=== PATIENT | female | born 1940 | race African-American/Black ===

== ENCOUNTER 2020-02-09 11:40 | Inpatient (IN) | payer MEDICARE, MEDICAID, SELFPAY ==
[2020-02-09] VITALS (22 sets, daily range): BP systolic 98–114; BP diastolic 32–52; PULSE 97–105; RESP 13–22; TEMP 36.8–37.1; O2SAT 95–100; BMI 28.5
--- NOTE | ~2020-02-09 | CT_ITS ---
EXAMINATION: CT abdomen pelvis w con EXAM DATE: 02/09/2020 13:39 INDICATION: Hematochezia. Abdominal pain. TECHNIQUE: Spiral CT of the abdomen and pelvis was performed following intravenous injection of 100 m L Omnipaque 350. Axial, coronal and sagittal images were reviewed. The dose-length product (DLP) fo r this examination was 1008.26 mGy-cm. The exposure was tailored according to patient size (auto mA exposure control), and iterative reconstruction (ASIR) was used as additional dose reduction techniqu e. There is no prior study for comparison. FINDINGS: There is large and deep sacral soft tissue decubitus ulceration, extending to the sacrum an d coccyx. There is small distal sacral erosion suspected, finding indicated on axial image 154, sagit yen image 94. There is fat stranding in the presacral space. The liver, spleen, adrenal glands and pancreas are unremarkable. There are gallstones within an othe rwise unremarkable gallbladder. No evidence of obstructive biliary disease. Portal and splenic vein s are patent. Kidneys enhance symmetrically. There is no hydronephrosis. The uterus is unremarkab le. The bladder is collapsed with Dash catheter balloon anchor inside. There is no retroperitonea l or pelvic lymphadenopathy. There is moderate to severe scattered arteriosclerotic disease. The appendix is normal. There is small sliding gastroesophageal hiatal hernia. There is expected am ount of colonic stool. No free intraperitoneal gas. There is cardiomegaly. Right basilar subpleur al banding, interlobular septal thickening. The lung bases are unremarkable. IMPRESSION: 1. Deep sacral decubitus, with small distal sacral erosions suspected, osteomyelitis. Presacral fat stranding. No pelvic abscess. 2. Cholelithiasis. 3. Cardiomegaly. Reviewed, dictated and finalized at location B. [employer] PLANNER IMPRESSION: 1. Deep sacral decubitus, with small distal sacral erosions suspected, osteomy elitis. Presacral fat stranding. No pelvic abscess. 2. Cholelithiasis. 3. Cardiomegaly.
--- NOTE | ~2020-02-09 | XR_ITS ---
EXAMINATION: XR chest 1V portable EXAM DATE: 02/09/2020 12:29 INDICATION: dyspnea TECHNIQUE: Portable AP frontal chest x-ray was obtained. There is no prior study for comparison. FINDINGS: There is a right-sided PICC line with tip projecting over the cavoatrial junction. Suspect patchy bilateral ill-defined acute airspace disease, could be edema and/or infection, or chronic les s likely. No confluent consolidation, pneumothorax or pleural effusion suspected. The cardiomediastin al silhouette is prominent but magnified on this AP technique. There are bony degenerative changes. T here is aortic arteriosclerosis. IMPRESSION: Suspect patchy bilateral ill-defined acute airspace disease, clinical correlation. Reviewed, dictated and finalized at location B. TIC ATTACHER COVERSTITCH IMPRESSION: Suspect patchy bilateral ill-defined acute airspace disease, clinic al correlation.
--- NOTE | ~2020-02-09 | CT_ITS ---
EXAMINATION: CTA chest PE protocol EXAM DATE: 02/11/2020 14:25 INDICATION: Dyspnea. TECHNIQUE: Spiral CTA of the chest (pulmonary arteries) was performed with 100 cc Omnipaque 350 intr avenous contrast injection. Images were acquired during the pulmonary arterial phase. Coronal maxi mum intensity projection 3D-reconstructions were created by the technologist on dedicated workstation . Axial, coronal and sagittal reformatted images were reviewed. The dose-length product (DLP) for t his examination was 539.59 mGy-cm. The exposure was tailored according to patient size (auto mA exp osure control), and iterative reconstruction (ASIR) was used as additional dose reduction technique. Correlation is made to abdomen pelvis CT 02/09/2020. FINDINGS: Pulmonary arteries are well opacified and without intraluminal filling defects. There is c ardiomegaly and interlobular septal thickening asymmetric to the right. This is more pronounced than on previous examination, could be some component of chronic interstitial lung disease but with superi mposed mild pulmonary edema. Also, interval development of trace pleural effusions compared to CT fro m 2 days earlier. No confluent consolidation. No thoracic aortic dissection. Tracheobronchial tr ee is patent. There is no mediastinal, hilar or axillary lymphadenopathy. There is no pneumothora x. Heart normal in size. There is moderate coronary arterial calcification, arterial sclerosis. Upper abdomen is unremarkable. There is thoracic spondylosis without osteoblastic or osteolytic les ions identified. IMPRESSION: 1. Development of cardiomegaly and trace pleural effusions. Progression of interlobular septal thick ening which could be mild pulmonary edema superimposed on chronic interstitial lung disease. 2. No pulmonary emboli. Reviewed, dictated and finalized at location B. [facility] IMPRESSION: 1. Development of cardiomegaly and trace pleural effusions. Progression of int erlobular septal thickening which could be mild pulmonary edema superimposed on chronic interstitial lung disease. 2. No pulmonary emboli.
--- NOTE | 2020-02-09 11:40 | ECG_ITS ---
Measurements Intervals [place] Rate: 103 P: 28 DE: 162 QRS: 19 QRSD: 138 T: 17 QT: 466 QTc: 612 Interpretive Statements SINUS TACHYCARDIA RIGHT BUNDLE BRANCH BLOCK INFERIOR INFARCT, AGE INDETERMINATE ABNORMAL ECG Electronically Signed On 02-09-2020 15:13:02 AGING ROOM OPERATOR by Caden Fernandez D.O.
--- NOTE | 2020-02-09 11:56 | ED.GENADULT ---
HPI - General Adult General Chief complaint: Weakness Stated complaint: LETHARGY,GI BLEED Time Seen by Provider: 02/09/20 11:43 Source: RN notes reviewed History of Present Illness HPI narrative: Patient presents emergency department from [facility] via EMS for GI bleed. The patient has been weak over the past 2 days and has been noted to have dark stools that were sent for occult blood at the group home was noted to be positive. The patient is currently complaining of no complaints she denies having fevers or chills abdominal pain nausea vomiting or any other symptoms. The patient is currently in isolation at the group home as her roommate tested positive for Covid however the patient has had a negative Covid swab. Patient is on Eliquis patient is also currently on ertapenem daily at the group home with PICC line right upper extremity for osteomyelitis Related Data Allergies Allergy/AdvReac Type Severity Reaction Status Date / Time salicylic acid Allergy Unknown Verified 02/09/20 14:27 Sulfa (Sulfonamide Allergy Unknown Verified 02/09/20 14:27 Antibiotics) Review of Systems Review of Systems: Narrative: Gen.: Denies fevers or chills ENT: Denies congestion Respiratory: Denies shortness of breath or cough CV: Denies chest pain or palpitations GI: See HPI denies burning, urgency, frequency or hematuria Musculoskeletal: Denies back pain or muscle pain Neuro: Reports weakness Skin: Denies rash Except as documented, all other systems reviewed and negative [facility] Past Medical History Medical History (Updated 02/09/20 @ 16:07 by Tony Rodriguez DO) Diabetes mellitus type 2 in nonobese Pulmonary embolism Social History Social History (Updated 02/09/20 @ 11:57 by Tony Rodriguez DO) Smoking status: Never smoker Exam Narrative: Exam Narrative: APPEARANCE: No acute distress, nontoxic, resting in bed EYES: EOMI HEENT: Normocephalic, atraumatic, OMM RESPIRATORY: No respiratory distress Clear to auscultation bilaterally with no rhonchi wheezing or rales. CARDIOVASCULAR: Regular rate and rhythm without murmurs rubs or gallops. ABDOMINAL: Soft, nontender, nondistended, no rebound or guarding Rectal: No hemorrhoids or fissures, black stool is Hemoccult positive MUSCULOSKELETAl: Moves all extremities. No clubbing, cyanosis or edema. PICC line in right upper extremity with no surrounding erythema NEURO: Awake and alert. Following commands, speech normal, no focal deficits SKIN:: Warm, dry. No rashes lesions or abrasions decubitus ulcer present over PSYCHIATRIC: Normal affect/mood, Course Course Emergency Course: Patient's roommate was positive for Covid the patient had negative Covid swab Friday but she also had a Covid swab yesterday with the results not back yet. Called and discussed with WILI Lemos presentation work-up. Agrees with admission at this time. We will keep patient on her daily ertapenem discussed the patient's positive Covid roommate and group home placement. At this time we will obtain another swab his chest x-ray shows questionable patchy infiltrate in place patient on Covid precautions Discussed with Dr. Patel presentation work-up. Agrees with consult at this time Discussed with patient and family results of workup and diagnosis. Discussed need for admission. Patient and family understand and agree to current treatment plan Vital Signs Vital signs: Vital Signs Temperature 98.8 F 02/09/20 11:45 Pulse Rate 102 H 02/09/20 11:45 Respiratory Rate 19 02/09/20 11:45 Blood Pressure 103/52 L 02/09/20 11:45 Pulse Oximetry 99 02/09/20 11:45 Temperature 98.8 F 02/09/20 11:45 Pulse Rate 102 H 02/09/20 15:19 Respiratory Rate 15 02/09/20 15:19 Blood Pressure 105/50 L 02/09/20 15:19 Pulse Oximetry 99 02/09/20 15:19 Medical Decision Making Vital Signs Vital Signs: Vital Signs Temperature 98.8 F 02/09/20 11:45 Pulse Rate 102 H 02/09/20 11:45 Respiratory Rate
[2020-02-09 12:11] LABS: Basophils Absolute Auto 0.1 K/mm3 (0.0-0.1); Basophils Percent Auto 0.3 % (0.2-1.2); Eosinophils Absolute Auto 0.1 K/mm3 (0-0.3); Eosinophils Percent Auto 0.3 % (0-4.4); Hematocrit 26.7 % (37.0-47.0); Hemoglobin 8.2 g/dL (12.0-15.0); Immature Granulocyte Absolute 0.14 K/mm3 (0.00-0.031); Immature Granulocyte Percent A 0.6 % (0-0.5); Lymphocytes Absolute Auto 2.38 K/mm3 (0.9-3.2); Lymphocytes Percent Auto 10.4 % (18.3-44.2); Mean Corpuscular HGB Conc 30.7 g/dl (32-36); Mean Corpuscular Hemoglobin 26.3 pg (26-34); Mean Corpuscular Volume 85.6 fl (80-100); Mean Platelet Volume 9.4 fl (7.4-10.4); Monocytes Absolute Auto 3.4 K/mm3 (0.1-0.6); Neutrophils Absolute Auto 16.8 K/mm3 (1.3-6.7); Neutrophils Percent Auto 73.4 % (45.5-73.1); Platelet Count Result 366 k/mm3 (150-375); Red Blood Count 3.12 M/mm3 (4.2-5.4); Red Cell Distribution Width 19.9 % (11.5-14.5); White Blood Count 22.9 K/mm3 (4.5-10.0)
[2020-02-09 12:24] LABS: Alanine Aminotransferase 12 U/L (4-35); Albumin Level 2.9 g/dL (3.5-5.1); Alkaline Phosphatase 102 U/L (38-126); Anion Gap 5 mmol/L (8-16); Aspartate Amino Transferase 25 U/L (14-36); Bilirubin,Total 0.3 mg/dL (0.2-1.3); Blood Urea Nitrogen 21 mg/dL (7-17); Calcium 8.3 mg/dL (8.4-10.2); Carbon Dioxide 32 mmol/L (22-30); Chloride 100 mmol/L (98-107); Estimated CRCL calculation 64 ml/min; Estimated Glomerular Filt Rate > 60; Glucose 110 mg/dL (65-105); Sodium 137 mmol/L (137-145)
[2020-02-09] MEDS: SODIUM CHLORIDE 0.9% IV 1,000 ML 999 ML IV CONT (12:25)
[2020-02-09 12:28] LABS: Add Urine Microscopic? YES; Appearance Urine Cloudy (Clear); Bacteria Urine Trace /hpf; Bilirubin Urine Negative (Negative); Color Urine Yellow (Yellow); Glucose Urine UA Negative (Negative); Ketones Urine Negative (Negative); Leukocyte Esterase Ur 3+ LEU/UL (Negative); Mucus Urine Rare /lpf; Nitrate Urine Negative (Negative); Protein Urine 1+ mg/dL (Negative); Specific Grav Ur 1.017 (1.001-1.035); Squamous Epithelial Cell Urine Many /hpf (Few); Transitional Epi Cells Urine Rare /hpf (None Seen); Urobilinogen Urine Negative mg/dL (<2.0); WBC Urine 31-50 /hpf
[2020-02-09 12:40] LABS: Blood Urine Negative (Negative)
[2020-02-09 13:01] LABS: INR 1.3; Prothrombin Time 16.8 Seconds (11.1-14.7)
[2020-02-09 13:02] LABS: Partial Thromboplastin Time 38.1 SECONDS (22.3-36.8)
--- NOTE | 2020-02-09 13:11 | WPDGICN ---
Assessment and Plan Assessment and plan (1) Melena: Code(s): K92.1 - Melena Status: Acute Assessment and Plan: Patient presented with melenic stools. Confirmed be Hemoccult-positive along with a blood loss anemia. Plan is for EGD to assess for upper GI blood loss patient will be maintained on proton pump inhibitor for possible ulcer disease. Will must also consider nose bleed to contribute to this as she was seen at [facility] recently with complaints of a nose bleed. ENT evaluation may be necessary if no upper GI sources identified. Eliquis anticoagulation will be held until it is deemed safe to resume period transfuse to stable hemoglobin and monitor blood count subsequently. (2) Anemia due to blood loss: Code(s): D50.0 - Iron deficiency anemia secondary to blood loss (chronic) Status: Acute (3) Nosebleed: Code(s): R04.0 - Epistaxis Status: Acute (4) Chronic anticoagulation: Code(s): Z79.01 - MCFP (current) use of anticoagulants Status: Acute (5) Pulmonary embolism: Code(s): I26.99 - Other pulmonary embolism without acute cor pulmonale Status: Acute GI Consult Note Consult date/time: 02/09/20 13:11 HPI: Zoila Woo is a 80 year old female Seen in evaluation at the request of the emergency room. Patient currently resident of detention. She has a history dating back to spring when she developed COVID. 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 She was placed on Eliquis anticoagulation. Approximately 1 week ago was admitted to [facility] for a nose bleed. An ENT evaluation apparently ensued. She cautiously was restarted on Eliquis anticoagulation. Today was noted to pass black melenic stools and sent to the emergency room for evaluation. A decline in hemoglobin to 8.2 was identified. Stools were confirmed to be Hemoccult positive. Patient denies any abdominal pain. No recent nose bleeds have been identified. Review of Systems Review of Systems: All systems reviewed & are unremarkable except as noted in HPI and below PMFSH Past Medical History Medical History (Updated 02/09/20 @ 13:14 by Wes Patel MD) Diabetes mellitus type 2 in nonobese Pulmonary embolism Social History Social History (Updated 02/09/20 @ 11:57 by Tony Rodriguez DO) Smoking status: Never smoker Meds Vital Signs Vital Signs - 24 hr 02/09/20 11:45 Temperature 98.8 F Pulse Rate 102 H Respiratory Rate 19 Blood Pressure 103/52 L Pulse Oximetry 99 Exam Narrative: Exam Narrative: Physical exam reveals patient be comfortable at rest. HEENT exam unremarkable. No obvious blood in her nasal canal. Lungs are clear to auscultation and percussion. Heart is without murmur or extra sounds. Abdominal exam bowel sounds are present soft nontender with no organomegaly. Rectal exam is unremarkable. In the emergency room stool was confirmed to be Hemoccult-positive. Results Labs CBC & Chem 7: 02/09/20 12:04 02/09/20 12:04 Labs: Short CBC 02/09/20 Range/Units 12:04 WBC 22.9 H (4.5-10.0) K/mm3 Hgb 8.2 L (12.0-15.0) g/dL Hct 26.7 L (37.0-47.0) % Plt Count 366 (150-375) k/mm3 BMP 02/09/20 12:04 Sodium 137 Potassium 3.0 L Chloride 100 Carbon Dioxide 32 H BUN 21 H Creatinine 0.70 Glucose 110 H Calcium 8.3 L Liver Function 02/09/20 Range/Units 12:04 Total Bilirubin 0.3 (0.2-1.3) mg/dL AST 25 (14-36) U/L ALT 12 (4-35) U/L Alkaline Phosphatase 102 (38-126) U/L Albumin 2.9 L (3.5-5.1) g/dL Urine 02/09/20 Range/Units 12:04 Urine Color Yellow (Yellow) Urine Appearance Cloudy H (Clear) Urine pH 6.0 (5.0-9.0) Ur Specific [place] 1.017 (1.001-1.035) Urine Protein 1+ H (Negative) mg/dL Urine Glucose (UA) Negative (Negative) mg/dL
[2020-02-09 13:43] LABS: Lactic Acid Reflex 1.5 mmol/L (0.7-2.1)
[2020-02-09] MEDS: HYDROcodone/acetaminophen (*CRX) 5-325 MG TABLET 1 TAB PO (15:25)
[2020-02-09 16:46] LABS: Hemoglobin 9.2 g/dL (12.0-15.0)
[2020-02-09 17:39] LABS: Glucose Point of Care 88 (65-105)
--- NOTE | 2020-02-09 18:00 | ADMGEN ---
This patient, Zoila Woo, was admitted to [facility] Surg Room 329-01. Patient/family oriented to hospital policies and general routines including ID bracelet, bed and alarms, visiting hours, pain management, procedures, bathroom and other care routines, personal items, smoking policy, room service/diet, and visiting hours. Information on how to activate the Rapid Response Team has been discussed. Patient/Family are encouraged to report perceived risks to care and to ask questions if they do not understand what they are told or what they should do.
[2020-02-09] MEDS: SODIUM CHLORIDE 0.9% IV 1,000 ML 80 ML IV CONT (20:54)
[2020-02-09] MEDS: PANTOPRAZOLE 40 MG TABLET PO (20:54)
[2020-02-09 21:29] LABS: Glucose Point of Care 91 (65-105)
[2020-02-09 21:56] LABS: Hematocrit 28.9 % (37.0-47.0)
[2020-02-09 22:35] LABS: SARS-CoV-2 RNA PCR Negative
[2020-02-09] MEDS: CENTRAL LINE FLUSH 10 ML IV PUSH (22:44)
[2020-02-10] VITALS (9 sets, daily range): BP systolic 103–125; BP diastolic 41–69; PULSE 96–106; RESP 16–22; TEMP 36.1–37.3; O2SAT 96–100; BMI 28.5
--- NOTE | 2020-02-10 03:55 | PM.IMHP ---
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 She is a poor historian. She had a roommate who was COVID positive, only exposure, however her test was negative. She denies any epistasis , hematemesis hemoptysis, bright red blood per rectum, abdominal pain, chest pain , lightheadedness, dizziness. she has no complaints does not even know she has melena. In the ED: Chest x-ray bilateral airspace disease, CT abdomen pelvis: Deep sacral decubitus small distal sacral erosion, presacral fat stranding. EKG sinus tach with right bundle-branch block. Vital stable, hemoglobin stable 8.2 [address] 9[address] Patel gastroenterology consulted plan for EGD in a.m. if negative patient will need ENT evaluation for epistaxis. Review of Systems Review of Systems: Narrative: Patient denies any symptoms unclear how well she knows her medical conditions, she lives at [facility] staff report melena and progressive weakness. Constitutional: No Fever, No Chills, No Night Sweats, No Fatigue, No Malaise ENT/Mouth: No Hearing Changes, No Ear Pain, No Nasal Congestion, No Sinus Pain, No Hoarseness, No sore throat, No Rhinorrhea, No Swallowing Difficulty Eyes: No Eye Pain, No Redness, No Vision Changes Cardiovascular: No Chest Pain, No Palpitations, No Dyspnea on Exertion, No Orthopnea, No Claudication, No Edema Respiratory: No Cough, No Sputum, No Wheezing, No Shortness of Breath Gastrointestinal: No Nausea, No Vomiting, No Diarrhea, No Constipation, No Abdominal Pain, No Heartburn, No Hematochezia, No Melena Genitourinary: No Dysuria, No Urinary Frequency, No Hematuria, No Urinary Incontinence, No Urgency Musculoskeletal: No Arthralgias, No Myalgias, No Joint Swelling, No Joint Stiffness, No Back Pain Skin: No Skin Lesions, No Pruritis, No Hair Changes Neuro: No Weakness, No Numbness, No Paresthesias, No Loss of Consciousness, No Syncope, No Dizziness, No Headache Psych: No Anxiety/Panic, No Depression, No Insomnia Heme: No Bruising, No Bleeding Lymph: No Adenopathy Endocrine: No Polyuria, No Polydipsia, No Temperature Intolerance PMF Past Medical History Medical History Chronic systolic heart failure Diabetes mellitus type 2 in nonobese Hyperlipidemia Pulmonary embolism Vitamin D deficiency Social History Social History (Updated 02/10/20 @ 04:37 by Devin Earl DO) Smoking status: Unknown if ever smoked Alcohol intake: never Substance use: never Living arrangements: fpc Additional living arrangements comments: [facility] Gender identity (if verbalized by the patient): Female Spiritual care concerns: No Meds Home Medications and Allergies Home Medications Medication Instructions Recorded Confirmed Type 0.9 % sodium chloride (phenol) 10 ml IV BID 02/09/20 02/09/20 History Humalog David KwikPen U-100 9 units SUBCUT TID 02/09/20 02/09/20 History Bashir DAILY 02/09/20 History Lasix 20 mg PO DAILY 02/09/20 02/09/20 History Poly-Iron 150 mg PO BID 02/09/20 02/09/20 History acetaminophen 1,000 mg PO Q8H PRN 02/09/20 02/09/20 History albuterol sulfate [Proventil HFA] 2 puff INHALATION Q8-10H PRN 02/09/20 02/09/20 History apixaban [Eliquis] 5 mg PO DAILY 02/09/20 02/09/20 History atorvastatin 20 mg PO DAILY 02/09/20 02/09/20 History clopidogrel [Plavix] 75 mg PO DAILY 02/09/20 02/09/20 History ergocalciferol (vitamin D2) 1,250 mcg PO DAILY 02/09/20 02/09/20 History ertapenem 1 g IV DAILY 02/09/20 02/09/20 History heparin
[2020-02-10] MEDS: CENTRAL LINE FLUSH 20 ML IV PUSH (05:07)
[2020-02-10] MEDS: CENTRAL LINE FLUSH 10 ML IV PUSH ×3 (05:07→21:32)
[2020-02-10 05:16] LABS: Basophils Absolute Auto 0.1 K/mm3 (0.0-0.1); Basophils Percent Auto 0.3 % (0.2-1.2); Eosinophils Percent Auto 0.2 % (0-4.4); Hematocrit 24.1 % (37.0-47.0); Hemoglobin 7.5 g/dL (12.0-15.0); Immature Granulocyte Percent A 0.5 % (0-0.5); Lymphocytes Absolute Auto 1.48 K/mm3 (0.9-3.2); Lymphocytes Percent Auto 7.7 % (18.3-44.2); Mean Corpuscular HGB Conc 31.1 g/dl (32-36); Mean Corpuscular Hemoglobin 26.6 pg (26-34); Mean Corpuscular Volume 85.5 fl (80-100); Mean Platelet Volume 9.1 fl (7.4-10.4); Monocytes Absolute Auto 2.3 K/mm3 (0.1-0.6); Monocytes Percent Auto 11.8 % (2.6-8.5); Neutrophils Absolute Auto 15.3 K/mm3 (1.3-6.7); Neutrophils Percent Auto 79.5 % (45.5-73.1); Platelet Count Result 371 k/mm3 (150-375); Red Blood Count 2.82 M/mm3 (4.2-5.4); Red Cell Distribution Width 19.8 % (11.5-14.5); White Blood Count 19.2 K/mm3 (4.5-10.0)
--- NOTE | 2020-02-10 08:01 | PC.NURSE ---
Called Hospitalist Ole RASHEED about pt having pain. No PRN meds available.
[2020-02-10 08:29] LABS: Anion Gap 1 mmol/L (8-16); Blood Urea Nitrogen 15 mg/dL (7-17); Calcium 8.1 mg/dL (8.4-10.2); Carbon Dioxide 32 mmol/L (22-30); Chloride 106 mmol/L (98-107); Estimated CRCL calculation 74 ml/min; Estimated Glomerular Filt Rate > 60; Glucose 54 mg/dL (65-105); Potassium 2.9 mmol/L (3.4-5.0); Sodium 139 mmol/L (137-145)
[2020-02-10] MEDS: DEXTROSE 50% 25 GM/50 ML SYRINGE IV PUSH ×2 (08:43→11:27)
[2020-02-10] MEDS: SODIUM CHLORIDE 0.9% IV 1,000 ML 80 ML IV CONT (08:44)
[2020-02-10 09:08] LABS: Glucose Point of Care 96 (65-105)
--- NOTE | 2020-02-10 09:16 | WPDANESEPPF ---
Anes - Initial Pre Proc Eval Procedure: Operation Date: 02/10/20 12:30 Proposed Procedures p Esophagogastroduodenoscopy - Wes Patel MD Date/Time: 02/10/20 09:16 Surgeon: Ole Voss PA-C Pre Op Diagnosis: gi bleed,anemia,leukocystosis,covid rule out Patient Data Age: 80 Gender: F Height: 1.73 m Weight: 85 kg Last Vital Signs Temp 37.3 C 02/10/20 06:00 Pulse 96 02/10/20 06:00 Resp 20 02/10/20 06:00 BP 104/46 L 02/10/20 06:00 Pulse Ox 96 02/10/20 06:00 Allergies Allergy/AdvReac Type Severity Reaction Status Date / Time salicylic acid Allergy Unknown Verified 02/09/20 18:42 Sulfa (Sulfonamide Allergy Unknown Verified 02/09/20 18:42 Antibiotics) Home Medications Medication Instructions Recorded Confirmed Type 0.9 % sodium chloride (phenol) 10 ml IV BID 02/09/20 02/09/20 History Humalog David KwikPen U-100 9 units SUBCUT TID 02/09/20 02/09/20 History Bashir DAILY 02/09/20 History Lasix 20 mg PO DAILY 02/09/20 02/09/20 History Poly-Iron 150 mg PO BID 02/09/20 02/09/20 History acetaminophen 1,000 mg PO Q8H PRN 02/09/20 02/09/20 History albuterol sulfate [Proventil HFA] 2 puff INHALATION Q8-10H PRN 02/09/20 02/09/20 History apixaban [Eliquis] 5 mg PO DAILY 02/09/20 02/09/20 History atorvastatin 20 mg PO DAILY 02/09/20 02/09/20 History clopidogrel [Plavix] 75 mg PO DAILY 02/09/20 02/09/20 History ergocalciferol (vitamin D2) 1,250 mcg PO DAILY 02/09/20 02/09/20 History ertapenem 1 g IV DAILY 02/09/20 02/09/20 History heparin lock flush (porcine) 50 unit IV DAILY 02/09/20 02/09/20 History insulin glargine [Lantus Solostar 25 unit SUBCUT DAILY 02/09/20 02/09/20 History U-100 Insulin] metoprolol tartrate 25 mg PO BID 02/09/20 02/09/20 History miconazole nitrate 1 applic TOPICAL BID 02/09/20 02/09/20 History ramelteon 8 mg PO HS PRN 02/09/20 02/09/20 History Laboratory Tests 02/09/20 02/09/20 02/09/20 12:04 12:04 12:04 WBC 22.9 K/mm3 H K/mm3 (4.5-10.0) RBC 3.12 M/mm3 L M/mm3 (4.2-5.4) Hgb 8.2 g/dL L g/dL (12.0-15.0) Hct 26.7 % L % (37.0-47.0) MCV 85.6 fl fl (80-100) MCH 26.3 pg pg (26-34) MCHC 30.7 g/dl L g/dl (32-36) RDW 19.9 % H % (11.5-14.5) Plt Count 366 k/mm3 k/mm3 (150-375) MPV 9.4 fl fl (7.4-10.4) Immature Gran % (Auto) 0.6 % H % (0-0.5) Neut % (Auto) 73.4 % H % (45.5-73.1) Lymph % (Auto) 10.4 % L % (18.3-44.2) [place] % (Auto) 15.0 % H % (2.6-8.5) Eos % (Auto) 0.3 % % (0-4.4) Baso % (Auto) 0.3 % % (0.2-1.2) Lymph # (Auto) 2.38 K/mm3 K/mm3 (0.9-3.2) [place] # (Auto) 3.4 K/mm3 H K/mm3 (0.1-0.6) Eos # (Auto) 0.1 K/mm3 K/mm3 (0-0.3) Baso # (Auto) 0.1 K/mm3 K/mm3 (0.0-0.1) Abs Immat Gran (auto) 0.14 K/mm3 H K/mm3 (0.00-0.031) Absolute Neuts (auto) 16.8 K/mm3 H K/mm3 (1.3-6.7) Absolute Nucleated RBC 0.0 K/mm3 K/mm3 (0.0-0.012) Nucleated RBC % 0.0 % % (0.0-0.2) PT 16.8 Seconds H Seconds (11.1-14.7) INR 1.3 APTT 38.1 SECONDS H SECONDS (22.3-36.8) Sodium Potassium Chloride Carbon Dioxide Anion Gap BUN Creatinine Estim Creat Clear Calc Estimated GFR Glucose POC Capillary Glucose Lactic Acid Calcium Total Bilirubin AST ALT Alkaline Phosphatase Total Protein Albumin Urine Color Yellow (Yellow) Urine Appearance Cloudy H (Clear) Urine pH 6.0 (5.0-9.0) Ur Specific [place] 1.017 (1.001-1.035) Urine Protein 1+ mg/dL H mg/dL (Negative) Urine Glucose (UA) Negative mg/dL mg/dL
[2020-02-10] MEDS: ERTAPENEM 1 GM/NS 50 ML 1 GM/50 ML BAG IVPB (10:14)
[2020-02-10 11:19] LABS: Glucose Point of Care 52 (65-105)
--- NOTE | 2020-02-10 11:45 | PCOTNOTE ---
Attempted OT evaluation, per RN pt's blood sugar is to low at the moment for therapy and pt will be going down for tests soon. Will attempt at later time.
[2020-02-10 11:49] LABS: Glucose Point of Care 111 (65-105)
[2020-02-10 11:58] LABS: Hematocrit 23.4 % (37.0-47.0); Hemoglobin 7.2 g/dL (12.0-15.0)
[2020-02-10] MEDS: LACTATED RINGERS 1,000 ML 150 ML IV CONT (12:19)
--- NOTE | 2020-02-10 13:27 | SUR.PHASEII ---
NO CHANGE IN SKIN CONDITION SINCE PREOP ASSESSMENT.
--- NOTE | 2020-02-10 13:34 | PCOTNOTE ---
Attempted OT evaluation, but unable to complete as patient gone for an EGD. Will attempt again later.
--- NOTE | 2020-02-10 14:55 | PM.IMPN ---
Progress Note: A&P Assessment and Plan (1) GI bleed: Qualifiers: GI bleed type/associated pathology: unspecified gastrointestinal hemorrhage type Qualified Code(s): K92.2 - Gastrointestinal hemorrhage, unspecified Code(s): K92.2 - Gastrointestinal hemorrhage, unspecified Status: Acute Assessment and Plan: Reports of black stools, Hemoccult positive, history of epistaxis at [facility] so it is unclear the source of the bleed as both complete melena; it is unclear as the source of blood loss from physical exam or review of systems as patient is poor historian. Dr. Patel consulted for upper endoscopy to rule out upper GI bleed source. Hgb now down to 7.2 continue Protonix PO b.i.d. continue holding blood thinner Continue IV fluids normal saline at 80 cc per hour Serial H&Hs Transfuse PRN Monitor closely (2) Anemia due to blood loss: Code(s): D50.0 - Iron deficiency anemia secondary to blood loss (chronic) Status: Acute Assessment and Plan: Likely due to acute blood loss anemia - GI vs epistaxis. Please see above a/p (3) Chronic anticoagulation: Code(s): Z79.01 - group home (current) use of anticoagulants Status: Acute Assessment and Plan: Patient on alf Eliquis Continue to hold for now given recent suspected GI bleed/anemia Resume when clinically appropriate Monitor (4) Nosebleed: Code(s): R04.0 - Epistaxis Status: Acute Assessment and Plan: History of epistaxis. Unclear if she has had nosebleeds recently as she is a poor historian Monitor for nose bleeds Consider ENT consult if this occurs (5) Melena: Code(s): K92.1 - Melena Status: Acute Assessment and Plan: GI blood loss vs epistaxis as stated above. See above a/p. Unclear if she continues to have melena (6) Pulmonary embolism: Qualifiers: Acute cor pulmonale presence: without acute cor pulmonale Chronicity: unspecified Pulmonary embolism type: unspecified Qualified Code(s): I26.99 - Other pulmonary embolism without acute cor pulmonale Code(s): I26.99 - Other pulmonary embolism without acute cor pulmonale Status: Acute Assessment and Plan: Chronic PE; on Eliquis continue to hold as noted above; resume when appropriate (7) Osteomyelitis: Code(s): M86.9 - Osteomyelitis, unspecified Status: Acute Assessment and Plan: sacral osteomyelitis patient has PICC line and gets IV ertapenem daily, can use PICC line; this is to continue through 03/03 per nursing heparin flush for PICC line Monitor CBC (8) Sacral decubitus ulcer: Code(s): L89.159 - Pressure ulcer of sacral region, unspecified stage Status: Acute Assessment and Plan: With osteomyelitis. Wound Care consulted and appreciate recommendation Continue local care continue treatment for osteomyelitis (9) Exposure to COVID-19 virus: Code(s): Z20.828 - Contact with and (suspected) exposure to other viral communicable diseases Status: Ruled-out Assessment and Plan: COVID testing negative; off of isolation precautions. Denies any symptoms. x-ray concerning for COVID-19 with patchy bilateral infiltrates Monitor for symptoms for now (10) Diabetes mellitus type 2 in nonobese: Code(s): E11.9 - Type 2 diabetes mellitus without complications Status: Acute Assessment and Plan: Patient NPO today and had hypoglycemic readings; improved with D50. Monitor Accuchecks ACHS, hypoglycemia protocol, correctional insulin, diabetic diet Will resume lantus at 16
[2020-02-10] MEDS: POTASSIUM CHLORIDE 20 MEQ PACKET (FOR LIQUID) 40 MEQ PO (16:50)
[2020-02-10] MEDS: COLLAGENASE OINT 30 GM TUBE 1 APPLIC TOPICAL (17:31)
[2020-02-10] MEDS: MICONAZOLE NITRATE 2% CREAM 30 GM TUBE 1 APPLIC TOPICAL (17:32)
[2020-02-10 18:07] LABS: Hematocrit 22.7 % (37.0-47.0); Hemoglobin 7.1 g/dL (12.0-15.0)
[2020-02-10] MEDS: FAMOTIDINE 20 MG TABLET PO (20:16)
[2020-02-10 21:38] LABS: Glucose Point of Care 189 (65-105)
[2020-02-11] MEDS: CENTRAL LINE FLUSH 10 ML IV PUSH ×2 (04:59→14:04)
[2020-02-11 05:35] LABS: Hematocrit 22.2 % (37.0-47.0); Mean Corpuscular HGB Conc 31.5 g/dl (32-36); Mean Corpuscular Hemoglobin 26.4 pg (26-34); Mean Corpuscular Volume 83.8 fl (80-100); Mean Platelet Volume 9.4 fl (7.4-10.4); Platelet Count Result 345 k/mm3 (150-375); Red Blood Count 2.65 M/mm3 (4.2-5.4); Red Cell Distribution Width 20.2 % (11.5-14.5); White Blood Count 21.1 K/mm3 (4.5-10.0)
[2020-02-11 05:36] LABS: Anion Gap 4 mmol/L (8-16); Blood Urea Nitrogen 6 mg/dL (7-17); Calcium 7.8 mg/dL (8.4-10.2); Carbon Dioxide 28 mmol/L (22-30); Chloride 111 mmol/L (98-107); Estimated CRCL calculation 87 ml/min; Estimated Glomerular Filt Rate > 60; Glucose 75 mg/dL (65-105); Magnesium 1.8 mg/dL (1.6-2.3); Potassium 2.9 mmol/L (3.4-5.0); Sodium 143 mmol/L (137-145)
[2020-02-11 06:00] VITALS: BP 115/50; PULSE 105; RESP 18; TEMP 36.3; O2SAT 99
[2020-02-11] MEDS: SODIUM CHLORIDE 0.9% IV 250 ML 999 ML IV CONT (06:55)
[2020-02-11] MEDS: SODIUM CHLORIDE 0.9% IV 1,000 ML 80 ML IV CONT ×2 (07:04→20:35)
[2020-02-11 07:24] LABS: Eosinophils Absolute Manual 0.21 K/mm3 (0.02-0.5); Eosinophils Percent Manual 1 % (0-4); Lymphocytes Absolute Manual 2.74 K/mm3 (1.1-4.5); Monocytes Absolute Manual 3.16 K/mm3 (0.1-0.90); Monocytes Percent Manual 15 % (3-9); Neutrophils Percent Manual 71 % (46-73); Platelet Estimate Adequate (Adequate); Total Cells Counted 100
[2020-02-11 07:25] LABS: Hypochromasia 2+ (NORMAL); Microcytosis 1+ (NORMAL); Ovalocytes 1+ (NORMAL)
[2020-02-11 08:10] VITALS: BP 114/47
[2020-02-11 08:35] LABS: Glucose Point of Care 70 (65-105)
[2020-02-11] MEDS: ATORVASTATIN 20 MG TABLET PO (09:59)
[2020-02-11] MEDS: COLLAGENASE OINT 30 GM TUBE 1 APPLIC TOPICAL (09:59)
[2020-02-11] MEDS: ERGOCALCIFEROL 50,000 UNIT CAPSULE 50000 UNITS PO (09:59)
[2020-02-11] MEDS: FAMOTIDINE 20 MG TABLET PO ×2 (10:00→20:33)
[2020-02-11] MEDS: MICONAZOLE NITRATE 2% CREAM 30 GM TUBE 1 APPLIC TOPICAL ×2 (10:00→16:43)
[2020-02-11] MEDS: FUROSEMIDE 20 MG TABLET PO (10:00)
[2020-02-11] MEDS: ERTAPENEM 1 GM/NS 50 ML 1 GM/50 ML BAG IVPB (10:00)
[2020-02-11] MEDS: INSULIN GLARGINE (*BKC) 100 UNITS/ML 8 UNITS SUB-Q (10:03)
--- NOTE | 2020-02-11 10:57 | WPDGIPROGNO ---
Progress Note: A&P Additional Plan No additional bleeding noted. Physical exam reveals abdomen be Benign. Hemoglobin 7.0, hematocrit 22.2 stable. Impression 1. Duodenal AVMs. Noted at time of endoscopy period is uncertain how this contributes to bleeding. He may have additional AVMs distally. Consider small bowel capsule study if anemia persists. This can be performed as an outpatient. 2. Recent history of epistaxis. Recently hospitalized at [facility] with oral pharyngeal bleeding. Appears to have been a posterior nasal bleed. This certainly could contribute to current anemia as well. Old records are not immediately available. Consider ENT follow-up if necessary. Subjective Date/time seen: 02/11/20 10:57 Objective Data Vital Signs Vital Signs: Vital Signs - 24 hr 02/10/20 12:21 02/10/20 13:16 02/10/20 13:26 Temperature 98.0 F Pulse Rate 106 H 96 98 Respiratory Rate 18 22 H 21 H Blood Pressure 107/48 L 105/57 L 118/65 Pulse Oximetry 99 100 98 02/10/20 13:36 02/10/20 14:00 02/10/20 21:56 Temperature 97.0 F L 98.2 F Pulse Rate 98 102 H 106 H Respiratory Rate 16 18 18 Blood Pressure 125/69 103/41 L 114/50 L Pulse Oximetry 98 100 100 02/11/20 06:00 02/11/20 08:10 Temperature 97.3 F L Pulse Rate 105 H Respiratory Rate 18 Blood Pressure 115/50 L 114/47 L Pulse Oximetry 99 Intake/Output Intake/Output: Intake & Output 02/08/20 02/09/20 02/10/20 02/11/20 23:59 23:59 23:59 23:59 Intake Total 1500 1850 2140 Output Total 1999 1550 Balance 1500 -150 590 Meds/Results Medications: Active Medications Generic Name Dose Route Start Last Admin Trade Name Freq PRN Reason Stop Dose Admin Albuterol 2 puff 02/10/20 03:59 Albuterol Sulfate (*Sp) Aerosol 1 Puff INHALATION Q8H PRN Shortness Of Breath Atorvastatin Calcium 20 mg 02/11/20 09:00 02/11/20 09:59 Atorvastatin 20 Mg Tablet PO 20 mg DAILY LEANN Administration Collagenase 1 applic 02/10/20 09:00 02/11/20 09:59 Collagenase Oint 30 Gm Tube TOPICAL 1 applic QAM LEANN Administration Dextrose 12.5 gm 02/09/20 22:54 02/10/20 11:27 Dextrose 50% 25 Gm/50 Ml Syringe IV PUSH 12.5 gm PRN PRN Administration Hypoglycemia Ergocalciferol 50,000 unit 02/11/20 09:00 02/11/20 09:59 Ergocalciferol 50,000 Unit Capsule PO 50,000 unit Fr@0900 LEANN Administration Famotidine 20 mg 02/10/20 21:00 02/11/20 10:00 Famotidine 20 Mg Tablet PO 20 mg Q12HR LEANN Administration Furosemide 20 mg 02/11/20 09:00 02/11/20 10:00 Furosemide 20 Mg Tablet PO 20 mg DAILY LEANN Administration Glucagon 1 mg 02/09/20 22:56 Glucagon For Inj 1 Mg Vial IM PRN PRN Hypoglycemia Glucose 15 gm 02/09/20 22:57 Glucose Oral Gel 15 Gm Of Glucse In 37.5 Gm Tube PO PRN PRN Hypoglycemia Sodium Chloride 1,000 mls @ 80 mls/hr 02/09/20 14:00 02/11/20 07:04 Normal Saline Iv IV CONT 80 mls/hr .[id number] LEANN Administration Ertapenem 1 gm in 50 mls @ 100 mls/hr 02/10/20 09:00 02/11/20 10:00 Invanz 1 Gm/Ns 50 Ml IVPB 100 mls/hr DAILY LEANN Administration Dextrose 1,000 mls @ 100 mls/hr 02/09/20 22:53 Dextrose 5% 1,000 Ml IV CONT .Q10H PRN Hypoglycemia Insulin Glargine 16 units 02/11/20 09:00 02/11/20 09:05 Insulin Glargine (*Bkc) 100 Units/Ml SUB-Q Not Given DAILY LEANN Miconazole Nitrate 1 applic 02/10/20 17:00 02/11/20 10:00 Miconazole Nitrate 2% Cream 30 Gm Tube TOPICAL 1 applic BID LEANN Administration Sodium Chloride 10 ml 02/09/20 22:00 02/11/20 04:59 Central Line Flush IV PUSH 10 ml Q8HR LEANN Administration Sodium Chloride 10 ml 02/09/20 16:18 Central Line Flush IV PUSH PRN PRN with TPN bag changes Sodium Chloride 20 ml 02/09/20 16:18 02/10/20 05:07 Central Line Flush IV PUSH 20 ml PRN PRN Administration after blood draws Radiology Results: ITS Impressions Ches
--- NOTE | 2020-02-11 12:05 | PCNFU ---
Nutrition Follow-Up Complete: Increased protein needs related to sacral pressure ulcer as evidence by comprehensive wound assessment and daily protein needs of 102g Goal: Diet advancement to appropriate diet with PO intake of 75% or greater of meals and supplements to meet increased protein needs Progressing towards goal. We will continue current goal. Pt current nutrition is Diabetic Consistent Carb diet. Nutrition recommendation: Agree. Last recorded weight is 85 kg. Bowel Motility: +BM reported 02/10 Labs Reviewed: Cr 0.5,BUN 6,K 2.9,Hct 22.2,Hgb 7.0 Meds Noted:Lasix,Lipitor,Lantus,NS at 80 ml/hr. Additional Notes: Patient seen today for nutrition follow up. Oral Intake has been good 100% of meals. She has diet supplements of Bashir BID and Glucerna BID for wound healing due to pressure ulcer on coccyx. Patient states to no diet concerns at this time. Agree with orders. Monitoring: po intake, skin, weight every five days
[2020-02-11 12:23] LABS: Glucose Point of Care 105 (65-105)
--- NOTE | 2020-02-11 12:30 | PM.IMPN ---
Progress Note: A&P Assessment and Plan (1) GI bleed: Qualifiers: GI bleed type/associated pathology: unspecified gastrointestinal hemorrhage type Qualified Code(s): K92.2 - Gastrointestinal hemorrhage, unspecified Code(s): K92.2 - Gastrointestinal hemorrhage, unspecified Status: Acute Assessment and Plan: Reports of black stools, Hemoccult positive, history of epistaxis at [facility] so it is unclear the source of the bleed as both complete melena; it is unclear as the source of blood loss from physical exam or review of systems as patient is poor historian. Had duodenal AVMs on EGD yesterday but no active bleeding. Will check with GI if they are ok resuming AC but we might also consider a ct of the chest to find out whether or not she still has a PE.. continue Protonix PO b.i.d. Serial H&Hs Transfuse PRN Monitor closely (2) Anemia due to blood loss: Code(s): D50.0 - Iron deficiency anemia secondary to blood loss (chronic) Status: Acute Assessment and Plan: Likely due to acute blood loss anemia - GI vs epistaxis. 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 Monitor (4) Nosebleed: Code(s): R04.0 - Epistaxis Status: Acute Assessment and Plan: History of epistaxis. Unclear if she has had nosebleeds recently as she is a poor historian Monitor for nose bleeds Consider ENT consult if this occurs (5) Melena: Code(s): K92.1 - Melena Status: Acute Assessment and Plan: GI blood loss vs epistaxis as stated above. (6) Pulmonary embolism: Qualifiers: Pulmonary embolism type: unspecified Chronicity: unspecified Acute cor pulmonale presence: without acute cor pulmonale Qualified Code(s): I26.99 - Other pulmonary embolism without acute cor pulmonale Code(s): I26.99 - Other pulmonary embolism without acute cor pulmonale Status: Acute Assessment and Plan: Chronic PE; on Eliquis continue to hold as noted above. Not clear how old or if the PE still there, we might consider to do a ct chest and if the clot is no longer there we can atop AC , she seems to be high risk for bleeding. (7) Osteomyelitis: Code(s): M86.9 - Osteomyelitis, unspecified Status: Acute Assessment and Plan: sacral osteomyelitis On set of BC growing gram positive cocci in clusters, await final report could be a contaminant. patient has PICC line and gets IV ertapenem daily, can use PICC line; this is to continue through 03/03 per nursing heparin flush for PICC line Monitor CBC (8) Sacral decubitus ulcer: Code(s): L89.159 - Pressure ulcer of sacral region, unspecified stage Status: Acute Assessment and Plan: With osteomyelitis. Wound Care consulted and appreciate recommendation Continue local care continue treatment for osteomyelitis (9) Exposure to COVID-19 virus: Code(s): Z20.828 - Contact with and (suspected) exposure to other viral communicable diseases Status: Ruled-out Assessment and Plan: COVID testing negative; off of isolation precautions. Denies any symptoms. x-ray concerning for COVID-19 with patchy bilateral infiltrates Monitor for symptoms for now (10) Diabetes mellitus type 2 in nonobese: Code(s): E11.9 - Type 2 diabetes mellitus without complications Status: Acute
--- NOTE | 2020-02-11 12:30 | P.PNIM_ITS ---
Progress Note: A&P Assessment and Plan (1) GI bleed: Qualifiers: GI bleed type/associated pathology: unspecified gastrointestinal hemorrhage type Qualified Code(s): K92.2 - Gastrointestinal hemorrhage, unspecified Code(s): K92.2 - Gastrointestinal hemorrhage, unspecified Status: Acute Assessment and Plan: Reports of black stools, Hemoccult positive, history of epistaxis at [facility] so it is unclear the source of the bleed as both complete melena; it is unclear as the source of blood loss from physical exam or review of systems as patient is poor historian. * Had duodenal AVMs on EGD yesterday but no active bleeding. * Will check with GI if they are ok resuming AC but we might also consider a ct of the chest to find out whether or not she still has a PE.. * continue Protonix PO b.i.d. * Serial H&Hs * Transfuse PRN * Monitor closely (2) Anemia due to blood loss: Code(s): D50.0 - Iron deficiency anemia secondary to blood loss (chronic) Status: Acute Assessment and Plan: Likely due to acute blood loss anemia - GI vs epistaxis. 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 * Monitor (4) Nosebleed: Code(s): R04.0 - Epistaxis Status: Acute Assessment and Plan: History of epistaxis. Unclear if she has had nosebleeds recently as she is a poor historian * Monitor for nose bleeds * Consider ENT consult if this occurs (5) Melena: Code(s): K92.1 - Melena Status: Acute Assessment and Plan: GI blood loss vs epistaxis as stated above. (6) Pulmonary embolism: Qualifiers: Pulmonary embolism type: unspecified Chronicity: unspecified Acute cor pulmonale presence: without acute cor pulmonale Qualified Code(s): I26.99 - Other pulmonary embolism without acute cor pulmonale Code(s): I26.99 - Other pulmonary embolism without acute cor pulmonale Status: Acute Assessment and Plan: Chronic PE; on Eliquis * continue to hold as noted above. * Not clear how old or if the PE still there, we might consider to do a ct chest and if the clot is no longer there we can atop AC , she seems to be high risk for bleeding. (7) Osteomyelitis: Code(s): M86.9 - Osteomyelitis, unspecified Status: Acute Assessment and Plan: sacral osteomyelitis * On set of BC growing gram positive cocci in clusters, await final report could be a contaminant. * patient has PICC line and gets IV ertapenem daily, can use PICC line; this is to continue through 03/03 per nursing * heparin flush for PICC line * Monitor CBC (8) Sacral decubitus ulcer: Code(s): L89.159 - Pressure ulcer of sacral region, unspecified stage Status: Acute Assessment and Plan: With osteomyelitis. * Wound Care consulted and appreciate recommendation * Continue local care * continue treatment for osteomyelitis (9) Exposure to COVID-19 virus: Code(s): Z20.828 - Contact with and (suspected) exposure to other viral communic
[2020-02-11 14:00] VITALS: BP 109/47; PULSE 106; RESP 20; TEMP 37.3; O2SAT 100
[2020-02-11 16:57] LABS: IFOB Positive Control Positive; Immunochemical Fecal Occult Bl Negative (N)
[2020-02-11 18:12] LABS: Glucose Point of Care 164 (65-105)
[2020-02-11 20:00] VITALS: BP 108/48; PULSE 110; RESP 18; TEMP 37.3; O2SAT 100
[2020-02-11 22:46] LABS: Glucose Point of Care 231 (65-105)
[2020-02-12] VITALS: BP 109/45; PULSE 108; RESP 20; TEMP 37.9; O2SAT 100
[2020-02-12 03:57] VITALS: BP 108/42; PULSE 105; RESP 22; TEMP 37.7; O2SAT 100
[2020-02-12 05:35] LABS: Basophils Absolute Auto 0.1 K/mm3 (0.0-0.1); Basophils Percent Auto 0.3 % (0.2-1.2); Eosinophils Absolute Auto 0.3 K/mm3 (0-0.3); Eosinophils Percent Auto 1.1 % (0-4.4); Hematocrit 22.3 % (37.0-47.0); Immature Granulocyte Absolute 0.12 K/mm3 (0.00-0.031); Immature Granulocyte Percent A 0.5 % (0-0.5); Lymphocytes Absolute Auto 2.88 K/mm3 (0.9-3.2); Lymphocytes Percent Auto 12.6 % (18.3-44.2); Mean Corpuscular HGB Conc 31.4 g/dl (32-36); Mean Corpuscular Hemoglobin 26.9 pg (26-34); Mean Corpuscular Volume 85.8 fl (80-100); Mean Platelet Volume 9.2 fl (7.4-10.4); Monocytes Absolute Auto 3.6 K/mm3 (0.1-0.6); Monocytes Percent Auto 15.9 % (2.6-8.5); Neutrophils Absolute Auto 15.9 K/mm3 (1.3-6.7); Neutrophils Percent Auto 69.6 % (45.5-73.1); Platelet Count Result 316 k/mm3 (150-375); Red Cell Distribution Width 20.1 % (11.5-14.5); White Blood Count 22.9 K/mm3 (4.5-10.0)
[2020-02-12 05:57] LABS: Anion Gap 1 mmol/L (8-16); Blood Urea Nitrogen 11 mg/dL (7-17); Calcium 7.8 mg/dL (8.4-10.2); Carbon Dioxide 30 mmol/L (22-30); Chloride 112 mmol/L (98-107); Estimated CRCL calculation 87 ml/min; Estimated Glomerular Filt Rate > 60; Glucose 123 mg/dL (65-105); Potassium 2.6 mmol/L (3.4-5.0); Sodium 143 mmol/L (137-145)
[2020-02-12 09:03] LABS: Glucose Point of Care 119 (65-105)
[2020-02-12] MEDS: ATORVASTATIN 20 MG TABLET PO (09:04)
[2020-02-12] MEDS: POTASSIUM CHLORIDE 20 MEQ PACKET (FOR LIQUID) 60 MEQ PO (09:04)
[2020-02-12] MEDS: ERTAPENEM 1 GM/NS 50 ML 1 GM/50 ML BAG IVPB (09:05)
[2020-02-12] MEDS: MICONAZOLE NITRATE 2% CREAM 30 GM TUBE 1 APPLIC TOPICAL ×2 (09:05→17:53)
[2020-02-12] MEDS: FAMOTIDINE 20 MG TABLET PO ×2 (09:05→20:55)
[2020-02-12] MEDS: FUROSEMIDE 20 MG TABLET PO (09:05)
[2020-02-12] MEDS: COLLAGENASE OINT 30 GM TUBE 1 APPLIC TOPICAL (09:05)
[2020-02-12] MEDS: INSULIN GLARGINE (*BKC) 100 UNITS/ML 16 UNITS SUB-Q (09:09)
[2020-02-12 09:50] LABS: Anion Gap 4 mmol/L (8-16); Blood Urea Nitrogen 9 mg/dL (7-17); Calcium 7.8 mg/dL (8.4-10.2); Carbon Dioxide 27 mmol/L (22-30); Chloride 110 mmol/L (98-107); Estimated CRCL calculation 87 ml/min; Estimated Glomerular Filt Rate > 60; Glucose 133 mg/dL (65-105); Magnesium 1.7 mg/dL (1.6-2.3); Potassium 3.1 mmol/L (3.4-5.0); Sodium 141 mmol/L (137-145)
[2020-02-12 10:57] LABS: Magnesium 1.7 mg/dL (1.6-2.3)
[2020-02-12] MEDS: CENTRAL LINE FLUSH 10 ML IV PUSH ×2 (13:10→20:57)
[2020-02-12 13:16] LABS: Glucose Point of Care 191 (65-105)
[2020-02-12 13:34] LABS: SARS-CoV-2 RNA PCR Negative
[2020-02-12 14:00] VITALS: BP 122/62; PULSE 107; RESP 16; TEMP 37.2; O2SAT 96
[2020-02-12] MEDS: ACETAMINOPHEN 325 MG TABLET 650 MG PO (15:11)
[2020-02-12 15:20] LABS: Potassium 3.8 mmol/L (3.4-5.0)
--- NOTE | 2020-02-12 15:42 | PM.IMPN ---
Progress Note: A&P Assessment and Plan (1) GI bleed: Qualifiers: GI bleed type/associated pathology: unspecified gastrointestinal hemorrhage type Qualified Code(s): K92.2 - Gastrointestinal hemorrhage, unspecified Code(s): K92.2 - Gastrointestinal hemorrhage, unspecified Status: Acute Assessment and Plan: Reports of black stools, Hemoccult positive, history of epistaxis at [facility] so it is unclear the source of the bleed as both complete melena; it is unclear as the source of blood loss from physical exam or review of systems as patient is poor historian. Hgb stable but low at 7.0 today. No reports of blood loss today. CTA negative for PE. Had duodenal AVMs on EGD yesterday but no active bleeding. continue Protonix PO b.i.d. Will plan on d/c a/c at discharge as there is no evidence of PE on CTA chest Monitor H&H Transfuse PRN Monitor closely (2) Anemia due to blood loss: Code(s): D50.0 - Iron deficiency anemia secondary to blood loss (chronic) Status: Acute Assessment and Plan: Likely due to acute blood loss anemia - GI vs epistaxis. 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 Unclear if she has had nosebleeds recently as she is a poor historian Monitor for nose bleeds Consider ENT referral after discharge (5) Melena: Code(s): K92.1 - Melena Status: Acute Assessment and Plan: GI blood loss vs epistaxis as stated above (6) Pulmonary embolism: Qualifiers: Pulmonary embolism type: unspecified Chronicity: unspecified Acute cor pulmonale presence: without acute cor pulmonale Qualified Code(s): I26.99 - Other pulmonary embolism without acute cor pulmonale Code(s): I26.99 - Other pulmonary embolism without acute cor pulmonale Status: Acute Assessment and Plan: No PE identified on CTA chest this hospital stay; previously on Eliquis for chronic PE but was placed on hold on arrival given GI bleed Likely d/c a/c given CTA chest findings f/u with PCP (7) Osteomyelitis: Code(s): M86.9 - Osteomyelitis, unspecified Status: Acute Assessment and Plan: sacral osteomyelitis patient has PICC line and gets IV ertapenem daily, can use PICC line; this is to continue through 03/03 per nursing heparin flush for PICC line Monitor CBC (8) Sacral decubitus ulcer: Code(s): L89.159 - Pressure ulcer of sacral region, unspecified stage Status: Acute Assessment and Plan: With osteomyelitis. Wound Care consulted and appreciate recommendation Continue local care continue treatment for osteomyelitis (9) Exposure to COVID-19 virus: Code(s): Z20.828 - Contact with and (suspected) exposure to other viral communicable diseases Status: Ruled-out Assessment and Plan: COVID testing negative x2; off of isolation precautions. Denies any symptoms. x-ray concerning for COVID-19 with patchy bilateral infiltrates Monitor for symptoms for now (10) Diabetes mellitus type 2 in nonobese: Code(s): E11.9 - Type 2 diabetes mellitus without complications Status: Acute Assessment and Plan: BGL 100s today Monitor
[2020-02-12 17:53] LABS: Glucose Point of Care 248 (65-105)
[2020-02-12] MEDS: INSULIN ASPART (*BKC) 100 UNITS/ML SUB-Q (18:18)
[2020-02-12 22:00] VITALS: BP 103/45; PULSE 104; RESP 18; TEMP 36.4; O2SAT 98
[2020-02-12 22:15] LABS: Glucose Point of Care 305 (65-105)
[2020-02-13] MEDS: CENTRAL LINE FLUSH 10 ML IV PUSH (05:00)
[2020-02-13 05:02] LABS: Basophils Percent Auto 0.2 % (0.2-1.2); Eosinophils Absolute Auto 0.3 K/mm3 (0-0.3); Eosinophils Percent Auto 1.3 % (0-4.4); Hematocrit 23.2 % (37.0-47.0); Hemoglobin 7.2 g/dL (12.0-15.0); Immature Granulocyte Absolute 0.12 K/mm3 (0.00-0.031); Immature Granulocyte Percent A 0.5 % (0-0.5); Lymphocytes Percent Auto 8.9 % (18.3-44.2); Mean Corpuscular Hemoglobin 26.8 pg (26-34); Mean Corpuscular Volume 86.2 fl (80-100); Mean Platelet Volume 8.8 fl (7.4-10.4); Monocytes Absolute Auto 3.8 K/mm3 (0.1-0.6); Monocytes Percent Auto 16.7 % (2.6-8.5); Neutrophils Absolute Auto 16.4 K/mm3 (1.3-6.7); Neutrophils Percent Auto 72.4 % (45.5-73.1); Platelet Count Result 300 k/mm3 (150-375); Red Blood Count 2.69 M/mm3 (4.2-5.4); Red Cell Distribution Width 20.4 % (11.5-14.5); White Blood Count 22.6 K/mm3 (4.5-10.0)
[2020-02-13 05:24] LABS: Anion Gap 4 mmol/L (8-16); Blood Urea Nitrogen 11 mg/dL (7-17); Calcium 7.8 mg/dL (8.4-10.2); Carbon Dioxide 29 mmol/L (22-30); Chloride 110 mmol/L (98-107); Estimated CRCL calculation 87 ml/min; Estimated Glomerular Filt Rate > 60; Glucose 163 mg/dL (65-105); Magnesium 1.7 mg/dL (1.6-2.3); Potassium 3.3 mmol/L (3.4-5.0); Sodium 143 mmol/L (137-145)
[2020-02-13 06:00] VITALS: BP 122/48; PULSE 96; RESP 16; TEMP 36.8; O2SAT 100
[2020-02-13 08:30] LABS: Glucose Point of Care 144 (65-105)
[2020-02-13] MEDS: ERTAPENEM 1 GM/NS 50 ML 1 GM/50 ML BAG IVPB (09:05)
[2020-02-13] MEDS: FUROSEMIDE 20 MG TABLET PO (09:08)
[2020-02-13] MEDS: FAMOTIDINE 20 MG TABLET PO (09:08)
[2020-02-13] MEDS: ATORVASTATIN 20 MG TABLET PO (09:08)
[2020-02-13] MEDS: MICONAZOLE NITRATE 2% CREAM 30 GM TUBE 1 APPLIC TOPICAL (09:09)
[2020-02-13] MEDS: COLLAGENASE OINT 30 GM TUBE 1 APPLIC TOPICAL (09:09)
[2020-02-13] MEDS: INSULIN GLARGINE (*BKC) 100 UNITS/ML 24 UNITS SUB-Q (09:18)
--- NOTE | 2020-02-13 09:51 | PM.DS ---
DS: Admitting Diagnosis Admitting Diagnosis Admitting Diagnosis: gi bleed,anemia,leukocystosis,covid rule out DS: Discharge Diagnosis Discharge Diagnosis (1) GI bleed: Qualifiers: GI bleed type/associated pathology: unspecified gastrointestinal hemorrhage type Qualified Code(s): K92.2 - Gastrointestinal hemorrhage, unspecified Code(s): K92.2 - Gastrointestinal hemorrhage, unspecified Status: Acute Assessment and Plan: Reports of black stools, Hemoccult positive, history of epistaxis at [facility] so it is unclear the source of the bleed as both complete melena; it is unclear as the source of blood loss from physical exam or review of systems as patient is poor historian. Hgb stable but low at 7.2 today. No reports of blood loss today. CTA negative for PE. Had duodenal AVMs on EGD on 02/09 but no active bleeding. continue Protonix PO b.i.d. Will plan on d/c a/c at discharge as there is no evidence of PE on CTA chest and patient high risk of bleeding F/u with PCP in 1 week Monitor H&H on 02/15 (2) Anemia due to blood loss: Code(s): D50.0 - Iron deficiency anemia secondary to blood loss (chronic) Status: Acute Assessment and Plan: Likely due to acute blood loss anemia - GI vs epistaxis. Please see above a/p (3) Chronic anticoagulation: Code(s): Z79.01 - half-way (current) use of anticoagulants Status: Acute Assessment and Plan: Patient on half-way Eliquis for Chronic PE, although CTA chest 02/10 was negative for PE Will likely d/c a/c given above findings; previously on hold given GI bleed/epistaxis F/u with PCP (4) Nosebleed: Code(s): R04.0 - Epistaxis Status: Acute Assessment and Plan: History of epistaxis. Unclear if she has had nosebleeds recently as she is a poor historian Monitor for nose bleeds Consider ENT referral after discharge (5) Melena: Code(s): K92.1 - Melena Status: Acute Assessment and Plan: GI blood loss vs epistaxis as stated above (6) Pulmonary embolism: Qualifiers: Acute cor pulmonale presence: without acute cor pulmonale Chronicity: unspecified Pulmonary embolism type: unspecified Qualified Code(s): I26.99 - Other pulmonary embolism without acute cor pulmonale Code(s): I26.99 - Other pulmonary embolism without acute cor pulmonale Status: Acute Assessment and Plan: No PE identified on CTA chest this hospital stay; previously on Eliquis for chronic PE but was placed on hold on arrival given GI bleed Likely d/c a/c given CTA chest findings f/u with PCP (7) Osteomyelitis: Code(s): M86.9 - Osteomyelitis, unspecified Status: Acute Assessment and Plan: sacral osteomyelitis. BCx growing coag neg staph in 1 bottle from 1/2 cultures; felt to be contaminate patient has PICC line and gets IV ertapenem daily, can use PICC line; this is to continue through 03/03 per nursing heparin flush for PICC line CBC on 02/15 (8) Sacral decubitus ulcer: Code(s): L89.159 - Pressure ulcer of sacral region, unspecified stage Status: Acute Assessment and Plan: With osteomyelitis. Wound Care consulted and appreciate recommendations Continue local care continue treatment for osteomyelitis (9) Exposure to COVID-19 virus: Code(s): Z20.828 - Contact with and (suspected) exposure to other viral communicable diseases Status: Ruled-out Assessment and Plan: COVID testing negative x2; off of isolation precautions. Denies any symptoms. x-ray concerning for COVID-19 with patchy bilateral infiltrates Monitor for symptoms for no
[2020-02-13 13:30] LABS: Glucose Point of Care 144 (65-105)
== END 2020-02-13 13:30 | DRG 377 ==
LOC: ANHED 12:01 → ANH3MEDSUR 15:01
PROVIDERS: Family Medicine; Hospitalist; Internal Medicine Gastroenterology; Physician Assistant; Admitting Provider Internal Medicine; Emergency Provider Emergency Medicine; Visit Provider Internal Medicine
PROC: 0DJ08ZZ Inspection of Upper Intestinal Tract, Via Natural or Artificial Opening Endoscopic (ICD-10-PCS; CPT 43235; principal; 2020-02-10 12:30)
DX: K55.21 Angiodysplasia of colon with hemorrhage (principal); L89.154 Pressure ulcer of sacral region, stage 4; D62 Acute posthemorrhagic anemia; I50.22 Chronic systolic (congestive) heart failure; M86.18 Other acute osteomyelitis, other site; R04.0 Epistaxis; Z20.828 Contact with and (suspected) exposure to other viral communicable diseases; R19.7 Diarrhea, unspecified; I73.9 Peripheral vascular disease, unspecified; E87.6 Hypokalemia; E11.9 Type 2 diabetes mellitus without complications; E55.9 Vitamin D deficiency, unspecified; Z79.01 Long term (current) use of anticoagulants; Z86.711 Personal history of pulmonary embolism
CPT/HCPCS: 36415; 71045; 71275; 74177; 80048; 80053; 81001; 82274; 83605; 83735; 84132; 85014; 85018; 85025; 85610; 85730; 86850; 86900; 86901; 87040; 87077; 87086; 87186; 87635; 93005; 96361; 96365; 96366; 96367; 96375; 97110; 97162; 97165; 97530; 97535; 99285; A9270; C9803; G0378; J0131; J1335; J1815; J2704; J3480; J7030; J7040; J7120; Q9967; U0003

== ENCOUNTER 2020-03-14 08:30 | Outpatient (RCR) | payer MEDICARE, MEDICAID, SELFPAY ==
[2020-03-01 07:22] LABS: Hematocrit 23.1 % (37.0-47.0); Hemoglobin 7.2 g/dL (12.0-15.0)
[2020-03-01] MEDS: ACETAMINOPHEN 500 MG TABLET PO (09:56)
[2020-03-01] MEDS: diphenhydrAMINE HCl CAP 25 MG CAPSULE PO (09:57)
[2020-03-01 10:10] VITALS: BP 108/52; PULSE 96; RESP 14; TEMP 36.5; O2SAT 96
[2020-03-01 10:25] VITALS: BP 110/55; PULSE 95; RESP 15; TEMP 36.4; O2SAT 100
[2020-03-01 11:25] VITALS: BP 102/42; PULSE 82; RESP 13; TEMP 36.4; O2SAT 97
[2020-03-01 12:25] VITALS: BP 102/46; PULSE 80; RESP 15; TEMP 36.7; O2SAT 97
[2020-03-01 13:05] VITALS: BP 102/46; PULSE 82; RESP 16; TEMP 36.3; O2SAT 97
[2020-03-14] VITALS (8 sets, daily range): BP systolic 99–116; BP diastolic 43–49; PULSE 93–107; RESP 15–20; TEMP 36.1–36.8; O2SAT 96–99
[2020-03-14 09:27] LABS: Hematocrit 24.6 % (37.0-47.0); Hemoglobin 7.6 g/dL (12.0-15.0)
--- NOTE | 2020-03-14 12:44 | PC.NURSE ---
Pt c/o back pain 11/14. states that is chronic and takes Naproxen for pain. Dr. Cid's office called to notify and request order for pain. Waiting for return call
[2020-03-14] MEDS: FUROSEMIDE INJ 40 MG/4 ML VIAL 20 MG IV PUSH (13:54)
[2020-03-14] MEDS: NAPROXEN 500 MG TABLET PO (14:29)
--- NOTE | 2020-03-14 17:04 | PC.NURSE ---
PICC line dressing peeling up at edges awnd loose. Dressing changed and sterile dressing applied to site.
== END 2020-05-30 23:59 | disposition home or self-care (01) ==
LOC: ANHCPCTRAN 08:30
PROVIDERS: PCP Family Medicine; Visit Provider Family Medicine
DX: D64.9 Anemia, unspecified (principal)
CPT/HCPCS: 36415; 36430; 85014; 85018; 86850; 86900; 86901; 86923; 96374; A9270; J1940; J7050; P9016